=== PATIENT | female | born 1970 | race Hispanic/Latino ===

== ENCOUNTER 2023-02-26 14:20 | Emergency (ER) | payer OTHER ==
--- NOTE | 2023-02-26 15:20 | RAD REPORT ---
EXAM DESCRIPTION: CT - Spine Lumbar Wo Con - 02/26/2023 3:07 pm CLINICAL HISTORY: Radiculopathy. PAIN COMPARISON: No comparisons TECHNIQUE: Axial noncontrast CT imaging of the lumbar spine was performed with coronal and sagittal re-formatted images. All CT scans are performed using dose optimization technique as appropriate and may include automated exposure control or mA/KV adjustment according to patient size. FINDINGS: No acute lumbar spine fracture seen. No aggressive marrow pattern or malalignment. Paraspinal tissues are normal in thickness. No paraspinal abscess or hematoma seen. Posterior disc bulges are present lower lumbar levels. Disc thinning with posterior osteophyte and va cuum disc degeneration present L5-S1. Mild canal narrowing is present at these levels. IMPRESSION: No acute lumbar spine abnormality. Moderate lower lumbar degenerative changes, most severe at L5-S1.
[2023-02-26] MEDS ORDERED: NA CHLORIDE 0.9% 500 ML ONE (15:35)
[2023-02-26 15:46] LABS: Absolute Lymphocytes (CBC) 1.3 K/uL (0.7-4.9); Hematocrit 39.9 % (36.0-45.0); Lymphocytes % 16.4 % (15.3-44.8); MCV 86.1 fL (80-100); MPV 7.6 fL (7.6-11.3); Platelets 338 thou/uL (152-406); RBC Red Blood Cell Count 4.64 M/uL (3.86-4.86)
--- NOTE | 2023-02-26 15:53 | RAD REPORT ---
EXAM DESCRIPTION: US - Extrem Venous W Compress Chan - 02/26/2023 3:45 pm CLINICAL HISTORY: PAIN Bilateral leg edema and swelling. COMPARISON: EXT VENOUS UNI LTD dated 12/13/2013 TECHNIQUE: Real-time sonographic interrogation of the left and right lower extremity deep venous sys tems was performed. FINDINGS: Normal compressibility, flow augmentation, phasic flow and spontaneous flow is identified in both the left and right lower extremity deep venous systems. IMPRESSION: No sonographic evidence of left or right lower extremity deep venous thrombosis.
--- NOTE | 2023-02-26 15:58 | RAD REPORT ---
EXAM DESCRIPTION: US - Lower Extremity Artery Uni Ltd - 02/26/2023 3:45 pm CLINICAL HISTORY: PAIN COMPARISON: No comparisons FINDINGS: Real-time sonographic interrogation of the right lower extremity arterial system was perfo rmed. Normal triphasic waveforms are seen throughout the right lower extremity arterial system. No si gnificant stenosis or occlusion. IMPRESSION: Unremarkable study.
[2023-02-26 16:04] LABS: Albumin 3.7 g/dL (3.4-5.0); Bilirubin Total 0.4 mg/dL (0.2-1.0); Protein, Total 7.9 g/dL (6.4-8.2)
[2023-02-26 16:30] LABS: Specific Gravity > 1.030 (1.005-1.030); Urine Bilirubin NEGATIVE (Negative); Urine Blood Negative (Negative); Urine Clarity Clear (Clear); Urine Color Colorless (Yellow); Urine Glucose 4+ (Over) (Negative); Urine Protein NEGATIVE (Negative); Urine Urobilinogen Normal (Normal)
[2023-02-26 16:32] LABS: Specific Gravity > 1.030 (1.005-1.030)
--- NOTE | 2023-02-26 17:02 | ER ---
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 Coronavirus screen: ll1 Client denies travel out of the [place] in the last 14 days. At this time, the client does not indicate any symptoms associated with coronavirus-19. Ebola Screen: Patient denies travel to an Ebola-affected area in the 21 days before illness onset. Initial Sepsis Screen: Does the patient meet any 2 criteria? HR > 90 bpm. No. Patient's initial sepsis screen is negative. Does the patient have a suspected source of infection? Yes: Other: leg pain. Risk Assessment: Do you want to hurt yourself or someone else? Patient reports no desire to harm self or others. Onset of symptoms was January 10, 2023. 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 - Social history:: Smoking status: Patient denies any tobacco usage or history of. Screenin:49 [facility] ED Fall Risk Assessment (Adult) History of falling in the last 3 months, mb9 including since admission No falls in past 3 months (0 pts) Confusion or Disorientation No (0 pts) Intoxicated or Sedated No (0 pts) Impaired Gait No (0 pts) Mobility Assist Device Used No (0 pt) Altered Elimination No (0 pt) Score/Fall Risk Level 0 - 2 = Low Risk Oriented to surroundings, Maintained a safe environment, Educated pt \T\ family on fall prevention, incl call for assistance when getting out of bed. Abuse screen: Denies threats or abuse. Nutritional screening: No deficits noted. Tuberculosis screening: No symptoms or risk factors identified. Assessment: 15:31 General: Appears in no apparent distress. Behavior is calm, cooperative. Pain: mb9 Complains of pain in right leg Pain does not radiate. Pain currently is 8 out of 10 on a pain scale. Quality of pain is described as throbbing. Neuro: Sheehan Agitation-Sedation Scale (RASS): 0 - Alert and Calm Level of Consciousness is awake, alert, obeys commands, Oriented to person, place, time, situation, Appropriate for age. Cardiovascular: Patient's skin is warm and dry. Respiratory: Airway is patent Respiratory effort is even, unlabored, Respiratory pattern is regular, symmetrical. GI: No signs and/or symptoms were reported involving the gastrointestinal system. : No signs and/or symptoms were reported regarding the genitourinary system. EENT: No signs and/or symptoms were reported regarding the EENT system. Derm: Skin is pink, warm \T\ dry. Musculoskeletal: Range of motion: intact in all extremities. 16:30 Reassessment: No changes from previously documented assessment. Patient and/or family mb9 updated on plan of care and expected duration. Pain level reassessed. Patient is alert, oriented x 3, equal unlabored respirations, skin warm/dry/pink. 17:15 Reassessment: Patient and/or family updated on plan of care and expected duration. Pain mb9 level reassessed. Patient is alert, oriented x 3, equal unlabored respirations, skin warm/dry/pink. Patient states feeling better. Patient states symptoms have improved. Vital Signs: 14:45 BP 114 / 70; Pulse 115; Resp 18; Temp 98.2; Pulse Ox 99% on R/A; Weight 90.26 kg; ll1 Height 5 ft. 3 in. ; Pain 10/10; 16:10 BP 113 / 80; Pulse 95; Resp 18; Pulse Ox 100% on R/A; mb9 17:15 BP 115 / 84; Pulse 88; Resp 16; Pulse Ox 98% on R/A; mb9 14:45 Body Mass Index 35.25 (90.26 kg, 160.02 cm) ll1 14:45 Pain Scale: Adult ll1 ED Course: 14:23 Patient arrived in ED. ts1 14:24 Jah Brewster MD is Attending Physician. jewell 14:44 Arm band placed on Patient placed in an exam room, on a stretcher. ll1 14:46 Triage completed. ll1 14:49 Placed in gown. Bed in low position. Call light in reach. Side rails up X 1. Client mb9 placed on continuous cardiac and pulse oximetry monitoring. NIBP monitoring applied. 15:06 CT Lumbar Spine Wo Con In Process Unspecified. EDMS 15:30 Taina Rodríguez, RN is Primary Nurse. mb9 15:31 Comprehensive Metabolic Panel Sent. mb9 15:31 CBC with Diff Sent. mb9 15:31 Inserted saline lock: 20 gauge in right antecubital area, using aseptic technique. mb9 15:47 US Extremity Venous W Compression Chan In Process Unspecified. EDMS 15:47 US LE Artery Uni Ltd In Process Unspecified. EDMS 16:59 Lili Becerra MD is Referral Physician[facility] 16:59 Magan Adame MD is Referral Physician. jewell 17:15 No provider procedures requiring assistance completed. IV discontinued, intact, mb9 bleeding controlled, No redness/swelling at site. Pressure dressing applied. Administered Medications: 15:33 Drug: NS 0.9% IV 500 ml IV at bolus once Route: IV; Rate: bolus; Site: right mb9 antecubital; 17:23 Follow up: Response: No adverse reaction; IV Status: Completed infusion mb9 Medication: 14:50 VIS not applicable for this client. mb9 Outcome: 17:01 Discharge ordered by . jewell 17:23 Discharged to home ambulatory, mb9 17:23 Condition: stable 17:23 Discharge instructions given to patient, Instructed on discharge instructions, follow up and referral plans. Demonstrated understanding of instructions, follow-up care, medications, Prescriptions given X 2, 17:23 Patient left the ED. mb9 Signatures: Dispatcher [employer] EDJah Rose MD MD cha Lewis, Lynsay, RN RN ll1 Taina Rodríguez, ANA RN mb9 Archana Soares PAS PAS ts1
--- NOTE | 2023-02-26 17:02 | EDPHYS ---
Physician Documentation [facility] Name: Sandhya Jacome Age: 52 yrs Sex: Female : 1970 Arrival Date: 02/26/2023 Time: 14:20 Bed 19 Private MD: SERGEY Physician Jah Brewster HPI: 02/26 16:42 This 52 yrs old Female presents to ER via Ambulatory with complaints of Leg jewell Pain. 16:42 The patient presents with pain, tenderness. The complaints affect the lateral aspect of jewell right knee, lateral aspect of right calf, medial aspect of right calf, right knee and right harris. Context: The problem was sustained at an unknown site, resulted from an unknown cause, the patient can fully bear weight, the patient is able to ambulate, without difficulty. Onset: The symptoms/episode began/occurred 3 day(s) ago. Modifying factors: The symptoms are alleviated by remaining still, the symptoms are aggravated by movement. Associated signs and symptoms: The patient has no apparent associated signs or symptoms. Severity of symptoms: At their worst the symptoms were mild, in the emergency department the symptoms are unchanged. The patient has experienced similar episodes in the past, multiple times. 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 - Social history:: Smoking status: Patient denies any tobacco usage or history of. ROS: 16:52 Constitutional: Negative for fever, chills, and weight loss, Eyes: Negative for injury, jewell pain, redness, and discharge, ENT: Negative for injury, pain, and discharge, Neck: Negative for injury, pain, and swelling, Cardiovascular: Negative for chest pain, palpitations, and edema, Respiratory: Negative for shortness of breath, cough, wheezing, and pleuritic chest pain, Abdomen/GI: Negative for abdominal pain, nausea, vomiting, diarrhea, and constipation, Back: Negative for injury and pain, : Negative for injury, bleeding, discharge, and swelling, Skin: Negative for injury, rash, and discoloration, Neuro: Negative for headache, weakness, numbness, tingling, and seizure, Psych: Negative for depression, anxiety, suicide ideation, homicidal ideation, and hallucinations, Allergy/Immunology: Negative for hives, rash, and allergies, Endocrine: Negative for neck swelling, polydipsia, polyuria, polyphagia, and marked weight changes, Hematologic/Lymphatic: Negative for swollen nodes, abnormal bleeding, and unusual bruising, 16:52 MS/extremity: Positive for decreased range of motion, pain, of the right leg, Exam: 16:52 Constitutional: This is a well developed, well nourished patient who is awake, alert, jewell and in no acute distress. Head/Face: Normocephalic, atraumatic. Eyes: Pupils equal round and reactive to light, extra-ocular motions intact. Lids and lashes normal. Conjunctiva and sclera are non-icteric and not injected. Cornea within normal limits. Periorbital areas with no swelling, redness, or edema. ENT: Nares patent. No nasal discharge, no septal abnormalities noted. Tympanic membranes are normal and external auditory canals are clear. Oropharynx with no redness, swelling, or masses, exudates, or evidence of obstruction, uvula midline. Mucous membranes moist. Neck: Trachea midline, no thyromegaly or masses palpated, and no cervical lymphadenopathy. Supple, full range of motion without nuchal rigidity, or vertebral point tenderness. No Meningismus. Chest/axilla: Normal chest wall appearance and motion. Nontender with no deformity. No lesions are appreciated. Cardiovascular: Regular rate and rhythm with a normal S1 and S2. No gallops, murmurs, or rubs. Normal PMI, no JVD. No pulse deficits. Respiratory: Lungs have equal breath sounds bilaterally, clear to auscultation and percussion. No rales, rhonchi or wheezes noted. No increased work of breathing, no retractions or nasal flaring. Abdomen/GI: Soft, non-tender, with normal bowel sounds. No distension or tympany. No guarding or rebound. No evidence of tenderness throughout. Back: No spinal tenderness. No costovertebral tenderness. Full range of motion. Skin: Warm, dry with normal turgor. Normal color with no rashes, no lesions, and no evidence of cellulitis. MS/ Extremity: Pulses equal, no cyanosis. Neurovascular intact. Full, normal range of motion. Neuro: Awake and alert, GCS 15, oriented to person, place, time, and situation. Cranial nerves II-XII grossly intact. Motor strength 5/5 in all extremities. Sensory grossly intact. Cerebellar exam normal. Normal gait. Psych: Awake, alert, with orientation to person, place and time. Behavior, mood, and affect are within normal limits. Vital Signs: 14:45 BP 114 / 70; Pulse 115; Resp 18; Temp 98.2; Pulse Ox 99% on R/A; Weight 90.26 kg; ll1 Height 5 ft. 3 in. ; Pain 10/10; 16:10 BP 113 / 80; Pulse 95; Resp 18; Pulse Ox 100% on R/A; mb9 17:15 BP 115 / 84; Pulse 88; Resp 16; Pulse Ox 98% on R/A; mb9 14:45 Body Mass Index 35.25 (90.26 kg, 160.02 cm) ll1 14:45 Pain Scale: Adult ll1 MDM: 14:25 Patient medically screened. [facility] 16:55 Differential diagnosis: contusion, abrasion, tendonitis. Data reviewed: vital signs, [facility] nurses notes, lab test result(s), radiologic studies, CT scan, doppler. Consideration of Admission/Observation Escalation of care including admission/observation considered. I considered the following discharge prescriptions or medication management in the emergency department Medications were administered in the Emergency Department. See MAR. Independent interpretation of the following test(s) in the Emergency Department CT Scan: My interpretation is ct lumbar. Test considered but Not performed: EKG: not needed, no cp , no sob. Care significantly affected by the following chronic conditions: Diabetes, Hypertension, blood do, high cholesterol, kidney stones. Counseling: I had a detailed discussion with the patient and/or guardian regarding the historical points, exam findings, and any diagnostic results supporting the discharge/admit diagnosis, lab results, radiology results, the need for outpatient follow up, for definitive care, a family practitioner, an counter helper. 02/26 14:54 Order name: CBC with Diff; Complete Time: 16:41 [facility] 02/26 14:54 Order name: Comprehensive Metabolic Panel; Complete Time: 16:41 [facility] 02/26 14:54 Order name: Urinalysis w/ reflexes; Complete Time: 16:41 [facility] 02/26 14:54 Order name: PREGU; Complete Time: 16:41 [facility] 02/26 14:54 Order name: CT Lumbar Spine Wo Con; Complete Time: 16:41 [facility] 02/26 14:54 Order name: Extremity Venous W Compression Chan; Complete Time: 16:41 [facility] 02/26 14:55 Order name: LE Artery Uni Ltd; Complete Time: 16:41 [facility] 02/26 15:31 Order name: IV Saline Lock; Complete Time: 15:31 mb9 Administered Medications: 15:33 Drug: NS 0.9% IV 500 ml IV at bolus once Route: IV; Rate: bolus; Site: right mb9 antecubital; 17:23 Follow up: Response: No adverse reaction; IV Status: Completed infusion mb9 Disposition Summary: 02/26/23 17:01 Discharge Ordered Notes: Location: Home jewell Problem: new jewell Symptoms: have improved jewell Condition: Stable jewell Diagnosis - Pain in right leg jewell - Sciatica, right side jewell - 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 jewell - Type 2 diabetes mellitus with hyperglycemia jewell Followup: jewell - With: Private Physician - When: 2 - 3 days - Reason: Recheck today's complaints, Continuance of care, Re-evaluation by your physician Followup: jewell - With: Lili Becerra MD - When: 2 - 3 days - Reason: Recheck today's complaints, Re-evaluation by your physician Followup: jewell - With: Magan Adame MD - When: 2 - 3 days - Reason: Recheck today's complaints, Re-evaluation by your physician Discharge Instructions: - Discharge Summary Sheet jewell - Hyperglycemia jewell - Musculoskeletal Pain jewell - Sciatica jewell - Diabetes Mellitus and Nutrition, Adult [facility] Forms: - Medication Reconciliation Form [facility] - Thank You Letter [facility] - Antibiotic Education jewell - Prescription Opioid Use jewell - Patient Portal Instructions [facility] - Leadership Thank You Letter [facility] Prescriptions: - acetaminophen-codeine 300-30 mg Oral tablet - take 2 tablet ORAL route every 6 hours; 20 tablet; Refills: 0, Product jewell Selection Permitted - Medrol (Jim) 4 mg Oral Tablets, Dose Pack - take 1 tablet ORAL route as directed - follow package instructions; 1 packet; jewell Refills: 0, Product Selection Permitted Signatures: Dispatcher [employer] Jah Valencia MD MD cha Lewis, Lynsay RN RN ll1 Breneman, Azra, RN RN mb9
[2023-02-27 16:01] VITALS: BP 115/84; TEMP 98.2; O2SAT 98
== END 2023-02-26 17:23 | disposition home or self-care (01) ==
LOC: ER 14:20
DX: M54.31 Sciatica, right side (principal); E11.65 Type 2 diabetes mellitus with hyperglycemia; Z79.01 Long term (current) use of anticoagulants; I10 Essential (primary) hypertension
CPT/HCPCS: 85025; 36415; 81025; 81003; 80053; 72131; 93926; 93970; J7040

== ENCOUNTER 2024-01-21 16:46 | Emergency (ER) | payer OTHER ==
[2024-01-21 18:24] LABS: Absolute Basophils 0.1 K/uL (0-0.5); Absolute Eosinophils 0.1 K/uL (0-0.5); Absolute Lymphocytes (CBC) 1.5 K/uL (0.7-4.9); Absolute Monocytes 0.4 K/uL (0.1-1.3); Absolute Neutrophil 5.5 K/uL (1.8-8.0); Basophils % 1.1 % (0-1.3); Eosinophils % 1.6 % (0-4.4); Hematocrit 39.5 % (36.0-45.0); Hemoglobin 13.1 g/dL (12.0-15.0); Lymphocytes % 19.9 % (15.3-44.8); MCHC 33.1 g/dL (32.0-36.0); MCV 87.7 fL (80-100); MPV 6.8 fL (7.6-11.3); Monocytes % 5.6 % (3.3-12.3); Neutrophils % 71.8 % (41.7-73.7); Nucleated Red Blood Cells % 0.1 % (0-0); Platelets 443 thou/uL (152-406); RBC Red Blood Cell Count 4.51 M/uL (3.86-4.86); Red Cell Distribution Width 14.6 % (12.1-15.2)
[2024-01-21] MEDS ORDERED: NA CHLORIDE 0.9% 1,000 ML ONE (18:29)
[2024-01-21 18:47] LABS: ALT/SGPT 24 U/L (13-56); AST/SGOT 11 U/L (15-37); Albumin 3.5 g/dL (3.4-5.0); Albumin/Globulin Ratio 0.8 (1.1-1.8); Alkaline Phosphatase 107 U/L (45-117); BUN Blood Urea Nitrogen 12 mg/dL (7-18); Bicarbonate 27 mEq/L (21-32); Bilirubin Total 0.3 mg/dL (0.2-1.0); Globulin 4.5 g/dL (2.3-3.5); Glomerular Filtration Rate 108 ml/min (=/>90); Glucose Level 68 mg/dL (74-106); Sodium Level 139 mEq/L (136-145)
[2024-01-21 18:48] LABS: Troponin High Sensitivity < 3.0 pg/mL (<58.9)
--- NOTE | 2024-01-21 18:56 | RAD REPORT ---
Extrem Venous W Compress Chan History: Leg pain Comparison 2022 TECHNIQUE: Complete bilateral duplex sonography of the LEFT lower extremity veins was performed. The examination included compression for vein patency, color Doppler imaging and flow augmentation in response to distal compression of the distal external iliac, common femoral, femoral, popliteal, tibi al, and great saphenous veins. Grayscale, color and spectral analysis performed on all vessels COMPARISON: No prior exam. FINDINGS: Duplex sonography testing of the veins of the LEFT lower extremity was performed. Color flow imaging shows all veins to be compressible with [id number] color filling. Pulsatile and phasic flow is present within all lower extremity deep and superficial veins examined. IMPRESSION: No evidence of deep venous thrombosis.
--- NOTE | 2024-01-21 19:41 | RAD REPORT ---
Chest For Pe Angio History: EXAM: CT CHEST WITH CONTRAST CLINICAL INDICATION: Chest pain Comparison 2013 TECHNIQUE: CT angiogram chest obtained. 100 cc 370 administered intravenously.. 3-D mip reconstructio n performed. One or more of the following dose reduction techniques were used: Automated exposure control, adjustm ent of the mA and/or kV according to patient size, and/or iterative reconstruction. COMPARISON: December 2023 FINDINGS: No pulmonary embolus seen. Thoracic aortic aneurysm is not present No pericardial effusion. No pleural effusion Lungs are clear. 2.6 cm left thyroid nodule IMPRESSION: Negative for pulmonary embolus 2.6 cm left thyroid nodule. Nonemergent ultrasound is recommended
--- NOTE | 2024-01-21 19:44 | EDPHYS ---
Physician Documentation [facility] Name: Sandhya Jacome Age: 53 yrs Sex: Female : 1970 Arrival Date: 01/21/2024 Time: 16:46 Bed 18 Private MD: ED Physician Jah Brewster HPI: 01/20 17:20 This 53 yrs old Female presents to ER via Ambulatory with complaints of Leg jewell Pain. 17:20 The patient presents with pain, that is acute. The complaints affect the lateral aspect jewell of left calf, left calf, medial aspect of left calf and left harris. Context: The problem was sustained at an unknown site, resulted from an unknown cause, the patient is not able to bear weight. Onset: The symptoms/episode began/occurred 2 day(s) ago. Modifying factors: The symptoms are alleviated by nothing. the symptoms are aggravated by nothing. Associated signs and symptoms: The patient has no apparent associated signs or symptoms. Severity of symptoms: At their worst the symptoms were moderate, in the emergency department the symptoms are unchanged. The patient has experienced similar episodes in the past, several times. 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 - Infectious Disease History:: Denies. - Social history:: Smoking status: Patient denies any tobacco usage or history of. - Family history:: not pertinent. ROS: 17:20 Constitutional: Negative for fever, chills, and weight loss, Eyes: Negative for injury, jewell pain, redness, and discharge, ENT: Negative for injury, pain, and discharge, Neck: Negative for injury, pain, and swelling, Cardiovascular: Negative for chest pain, palpitations, and edema, Respiratory: Negative for shortness of breath, cough, wheezing, and pleuritic chest pain, Abdomen/GI: Negative for abdominal pain, nausea, vomiting, diarrhea, and constipation, Back: Negative for injury and pain, : Negative for injury, bleeding, discharge, and swelling, Skin: Negative for injury, rash, and discoloration, Neuro: Negative for headache, weakness, numbness, tingling, and seizure, Psych: Negative for depression, anxiety, suicide ideation, homicidal ideation, and hallucinations, Allergy/Immunology: Negative for hives, rash, and allergies, Endocrine: Negative for neck swelling, polydipsia, polyuria, polyphagia, and marked weight changes, Hematologic/Lymphatic: Negative for swollen nodes, abnormal bleeding, and unusual bruising, 17:20 MS/extremity: Positive for pain, of the left leg, Exam: 17:20 Constitutional: This is a well developed, well nourished patient who is awake, alert, jewell and in no acute distress. Head/Face: Normocephalic, atraumatic. Eyes: Pupils equal round and reactive to light, extra-ocular motions intact. Lids and lashes normal. Conjunctiva and sclera are non-icteric and not injected. Cornea within normal limits. Periorbital areas with no swelling, redness, or edema. ENT: Nares patent. No nasal discharge, no septal abnormalities noted. Tympanic membranes are normal and external auditory canals are clear. Oropharynx with no redness, swelling, or masses, exudates, or evidence of obstruction, uvula midline. Mucous membranes moist. Neck: Trachea midline, no thyromegaly or masses palpated, and no cervical lymphadenopathy. Supple, full range of motion without nuchal rigidity, or vertebral point tenderness. No Meningismus. Chest/axilla: Normal chest wall appearance and motion. Nontender with no deformity. No lesions are appreciated. Cardiovascular: Regular rate and rhythm with a normal S1 and S2. No gallops, murmurs, or rubs. Normal PMI, no JVD. No pulse deficits. Respiratory: Lungs have equal breath sounds bilaterally, clear to auscultation and percussion. No rales, rhonchi or wheezes noted. No increased work of breathing, no retractions or nasal flaring. Abdomen/GI: Soft, non-tender, with normal bowel sounds. No distension or tympany. No guarding or rebound. No evidence of tenderness throughout. Back: No spinal tenderness. No costovertebral tenderness. Full range of motion. Skin: Warm, dry with normal turgor. Normal color with no rashes, no lesions, and no evidence of cellulitis. Neuro: Awake and alert, GCS 15, oriented to person, place, time, and situation. Cranial nerves II-XII grossly intact. Motor strength 5/5 in all extremities. Sensory grossly intact. Cerebellar exam normal. Normal gait. Psych: Awake, alert, with orientation to person, place and time. Behavior, mood, and affect are within normal limits. 17:20 ECG was reviewed by the Attending Physician. 17:20 Musculoskeletal/extremity: Extremities: all appear grossly normal, with no appreciated pain with palpation, ROM: intact in all extremities, full active range of motion, full passive range of motion, Circulation is intact in all extremities. Compartment Syndrome exam of affected extremity: is normal. Joints: All joints appear normal with full range of motion. Weight bearing: able to fully bear weight, 19:02 ECG was reviewed by the Attending Physician. [facility] Vital Signs: 17:10 BP 142 / 83; Pulse 88; Resp 20; Temp 97.4(TE); Pulse Ox 100% on R/A; Weight 86.18 kg; tm6 Height 5 ft. 3 in. ; Pain 9/10; 18:46 BP 137 / 77; Pulse 80; Resp 17; Pulse Ox 99% on R/A; rs5 20:10 BP 106 / 72; Pulse 76; Resp 18; Pulse Ox 99% ; cp4 17:10 Body Mass Index 33.66 (86.18 kg, 160.02 cm) tm6 17:10 Pain Scale: Adult tm6 MDM: 17:11 Patient medically screened. [facility] 17:22 Differential diagnosis: contusion, tendonitis. Data reviewed: vital signs, nurses [facility] notes, lab test result(s), EKG, radiologic studies, CT scan. Consideration of Admission/Observation Escalation of care including admission/observation considered. I considered the following discharge prescriptions or medication management in the emergency department Medications were administered in the Emergency Department. See MAR. Independent interpretation of the following test(s) in the Emergency Department EKG: See my EKG interpretation above. Test considered but Not performed: MRI: NO LEG LUMBAR MRI. Historians other than the Patient: PT WELL INFORMED. Care significantly affected by the following chronic conditions: Diabetes, Hypertension, Obesity, KIDNEY STONES. Counseling: I had a detailed discussion with the patient and/or guardian regarding the historical points, exam findings, and any diagnostic results supporting the discharge/admit diagnosis, lab results, radiology results, the need for outpatient follow up, for definitive care, a family practitioner. 01/20 17:20 Order name: CBC with Diff; Complete Time: 18:58 [facility] 01/20 17:20 Order name: Comprehensive Metabolic Panel; Complete Time: 18:58 [facility] 01/20 17:20 Order name: Troponin High Sensitivity; Complete Time: 18:58 [facility] 01/20 17:20 Order name: CT Chest For PE Angio [facility] 01/20 17:20 Order name: US Extremity Venous W Compression Chan; Complete Time: 18:58 [facility] 01/20 17:20 Order name: EKG; Complete Time: 17:20 [facility] 01/20 17:20 Order name: EKG - Nurse/Tech; Complete Time: 19:00 [facility] EC:02 Rate is 73 beats/min. Rhythm is regular. QRS [place] is Normal. ID interval is normal. QRS jewell interval is normal. QT interval is normal. No Q waves. T waves are Normal. No ST changes noted. Clinical impression: Normal ECG and No evidence of ischemia. Interpreted by me. Reviewed by me. Administered Medications: 17:40 Drug: NS 0.9% IV 1000 ml IV at 1 bolus Per protocol; 1000 mL bolus Route: IV; Rate: 1 rs5 bolus; Site: right antecubital; Disposition Summary: 01/21/24 19:43 Discharge Ordered Notes: Location: Home jewell Problem: new jewell Symptoms: have improved jewell Condition: Stable jewell Diagnosis - Pain in left lower leg jewell - long-term (current) use of anticoagulants jewell Followup: jewell - With: Private Physician - When: 2 - 3 days - Reason: Recheck today's complaints, Continuance of care, Re-evaluation by your physician Discharge Instructions: - Discharge Summary Sheet jewell - Musculoskeletal Pain jewell - Sciatica jewell - Sciatica, [id number]-[id number] jewell - Sciatica Rehab-SportsMed jewell Forms: - Medication Reconciliation Form jewell - Antibiotic Education jewell - Prescription Opioid Use jewell - Patient Portal Instructions jewell - Leadership Thank You Letter jewell Signatures: Dispatcher [employer] Jah Valencia MD MD cha Sotelo, Ricky, RN RN rs5 Don Sarmiento RN RN tm6
--- NOTE | 2024-01-21 19:44 | ER ---
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 tm6 Has history of blood clots and has had a saddle PE in the past. Is on xarelto. My breathing feels different today too. Coronavirus screen: Vaccine status: Patient reports receiving the 2nd dose of the covid vaccine. Ebola Screen: Patient negative for fever greater than or equal to 101.5 degrees Fahrenheit, and additional compatible Ebola Virus Disease symptoms Patient denies exposure to infectious person. Patient denies travel to an Ebola-affected area in the 21 days before illness onset. No symptoms or risks identified at this time. Initial Sepsis Screen: Does the patient meet any 2 criteria? No. Patient's initial sepsis screen is negative. Does the patient have a suspected source of infection? No. Patient's initial sepsis screen is negative. Risk Assessment: Do you want to hurt yourself or someone else? Patient reports no desire to harm self or others. Onset of symptoms was January 17, 2024. 17:10 Method Of Arrival: Ambulatory 6 17:10 Acuity: ONEIL 3 tm6 Triage Assessment: 17:12 General: Appears in no apparent distress. Behavior is calm, cooperative. Pain: tm6 Complains of pain in left calf Pain currently is 8 out of 10 on a pain scale. Quality of pain is described as crampy, Pain began 4 days ago. EENT: No signs and/or symptoms were reported regarding the EENT system. Neuro: Level of Consciousness is awake, alert, obeys commands, Oriented to person, place, time, situation. Cardiovascular: Patient's skin is warm and dry. Respiratory: Reports shortness of breath Airway is patent Respiratory effort is even, unlabored, Respiratory pattern is regular, symmetrical. GI: No signs and/or symptoms were reported involving the gastrointestinal system. Abdomen is flat, non-distended. : No signs and/or symptoms were reported regarding the genitourinary system. Derm: No signs and/or symptoms reported regarding the dermatologic system. Musculoskeletal: Reports pain in left calf Pain is 8 out of 10 on a pain scale. 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 - Infectious Disease History:: Denies. - Social history:: Smoking status: Patient denies any tobacco usage or history of. - Family history:: not pertinent. Screenin:20 [facility] Fall Risk Assessment (Adult) History of falling in the last 3 months, rs5 including since admission No falls in past 3 months (0 pts) Confusion or Disorientation No (0 pts) Intoxicated or Sedated No (0 pts) Impaired Gait No (0 pts) Mobility Assist Device Used No (0 pt) Altered Elimination No (0 pt) Score/Fall Risk Level 0 - 2 = Low Risk Oriented to surroundings, Maintained a safe environment. Abuse screen: Denies threats or abuse. Nutritional screening: No deficits noted. Tuberculosis screening: No symptoms or risk factors identified. Assessment: 17:17 General: Appears in no apparent distress. uncomfortable, Behavior is calm, cooperative. rs5 Pain: Complains of pain in left calf Pain does not radiate. Pain currently is 3 out of 10 on a pain scale. Quality of pain is described as aching, Is continuous. Neuro: Level of Consciousness is awake, alert, obeys commands, Oriented to person, place, time, situation. Cardiovascular: Patient's skin is warm and dry. Respiratory: Airway is patent Respiratory effort is even, unlabored, Respiratory pattern is regular, symmetrical. GI: Abdomen is round non-distended, Abd is soft and non tender X 4 quads. : No signs and/or symptoms were reported regarding the genitourinary system. EENT: No signs and/or symptoms were reported regarding the EENT system. Derm: Skin is intact, Skin is pink, warm \T\ dry. Musculoskeletal: Range of motion: limited in left leg. 18:45 Reassessment: Patient and/or family updated on plan of care and expected duration. Pain rs5 level reassessed. Patient is alert, oriented x 3, equal unlabored respirations, skin warm/dry/pink. Vital Signs: 17:10 BP 142 / 83; Pulse 88; Resp 20; Temp 97.4(TE); Pulse Ox 100% on R/A; Weight 86.18 kg; tm6 Height 5 ft. 3 in. ; Pain 9/10; 18:46 BP 137 / 77; Pulse 80; Resp 17; Pulse Ox 99% on R/A; rs5 20:10 BP 106 / 72; Pulse 76; Resp 18; Pulse Ox 99% ; cp4 17:10 Body Mass Index 33.66 (86.18 kg, 160.02 cm) tm6 17:10 Pain Scale: Adult tm6 ED Course: 16:50 Patient arrived in ED. mg5 17:11 Jah Brewster MD is Attending Physician. jewell 17:12 Triage completed. tm6 17:14 Arm band placed on right wrist. tm6 17:20 Patient has correct armband on for positive identification. Placed in gown. Bed in low rs5 position. Call light in reach. Side rails up X2. 17:20 Inserted saline lock: 20 gauge in right antecubital area, using aseptic technique. rs5 Blood collected. Flushed with 10 mL NS. 17:20 No provider procedures requiring assistance completed. rs5 18:03 Fadi Hopkins, RN is Primary Nurse. rs5 18:31 US Extremity Venous W Compression Chan In Process Unspecified. EDMS 19:26 CT Chest For PE Angio In Process Unspecified. EDMS 20:12 Provided Education on: sciatica. cp4 20:12 intact, bleeding controlled, No redness/swelling at site. Pressure dressing applied. cp4 Administered Medications: 17:40 Drug: NS 0.9% IV 1000 ml IV at 1 bolus Per protocol; 1000 mL bolus Route: IV; Rate: 1 rs5 bolus; Site: right antecubital; Medication: 18:46 VIS not applicable for this client. rs5 Outcome: 19:43 Discharge ordered by . jewell 20:12 Discharged to home ambulatory, cp4 20:12 Condition: stable 20:12 Discharge instructions given to patient, Instructed on discharge instructions, follow up and referral plans. Demonstrated understanding of instructions, follow-up care, 20:13 Patient left the ED. cp4 Signatures: Dispatcher [employer] EDJah Rose MD MD cha Sotelo, Ricky, RN RN rs5 Mary Jane Longoria mg5 Rosa Guerra cp4 Don Sarmiento RN RN tm6 Corrections: (The following items were deleted from the chart) 17:14 17:10 Chief complaint: Patient states: left calf has been hurting x 4 days, getting tm6 worse. Has history of blood clots and has had a saddle PE in the past. Is on xarelto. tm6
[2024-01-21 20:37] VITALS: TEMP 97.4
[2024-01-21 20:38] VITALS: O2SAT 99
[2024-01-21 20:39] VITALS: BP 106/72
--- NOTE | 2024-01-22 12:16 | EKG ---
Test Date: 2024-01-21 Test Time: 18:52:40 Information Technology Instructor: SHANTEL MEASUREMENT RESULTS: Intervals: Rate: 73 UT: 162 QRSD: 76 QT: 386 QTc: 425 [place]: P: 55 UT: 162 QRS: 60 T: 54 INTERPRETIVE STATEMENTS: Normal sinus rhythm Normal ECG Compared to ECG 12/13/2013 11:01:30 Sinus tachycardia no longer present Electronically Signed On 01-22-24 12:14:59 CDT by Carlos Degroot
== END 2024-01-21 20:13 | disposition home or self-care (01) ==
LOC: ER 16:46
DX: M79.662 Pain in left lower leg (principal); I10 Essential (primary) hypertension; E11.9 Type 2 diabetes mellitus without complications; E78.00 Pure hypercholesterolemia, unspecified; Z79.01 Long term (current) use of anticoagulants
CPT/HCPCS: 93005; 85025; 36415; 84484; 80053; 71275; 93970; 99284; Q9967; J7030